=== PATIENT | male | born 1970 | race Caucasian/White ===

== ENCOUNTER 2019-12-10 15:36 | Emergency (ER) | payer OTHER ==
[~2019-12-10 15:36] MED LIST: FLAGYL500 MG PO; FLEXERIL5 MG PO; HYDROCODONE BIT1 T11 PO; IMODIUM A-D2 M2 PO; LISINOPRIL20 MG PO; LISINOPRIL5 MG PO; METOPROLOL SUCC25 M2 PO; MOTRIN800 MG PO; PANTOPRAZOLE SO20 MG PO; VITAMIN D-32000 UNIT PO; ZOFRAN4 MG PO
== END 2019-12-10 19:30 | disposition home or self-care (01) ==
LOC: ED 15:36
DX: S61.215A Laceration without foreign body of left ring finger without damage to nail, initial encounter (principal); K21.9 Gastro-esophageal reflux disease without esophagitis; I10 Essential (primary) hypertension; Z79.899 Other long term (current) drug therapy; X58.XXXA Exposure to other specified factors, initial encounter; Y93.89 Activity, other specified; Y92.89 Other specified places as the place of occurrence of the external cause; Y99.8 Other external cause status

== ENCOUNTER → 2020-10-30 | Outpatient (CLI) | payer OTHER ==
[2020-10-30 07:42] LABS: BUN 9 mg/dl (7-24); CHLORIDE 109 mmol/L (98-107); CHOLESTEROL 179 mg/dL (<200); CREATININE 0.82 mg/dL (0.70-1.30); LDL CHOLESTEROL 104 mg/dL (9-159); POTASSIUM 3.9 mmol/L (3.5-5.1); SODIUM 143 mmol/L (136-145); TRIGLYCERIDES 187 mg/dl (<150)
== END | disposition home or self-care (01) ==
LOC: LAB 07:05
PROVIDERS: ATTEND Family Medicine
DX: I10 Essential (primary) hypertension (principal)

== ENCOUNTER → 2021-03-02 | Outpatient (CLI) | payer OTHER | END | disposition home or self-care (01) | LOC: COVID19 15:15 | PROVIDERS: ATTEND Internal Medicine | DX: Z20.822 Contact with and (suspected) exposure to COVID-19 (principal) ==

== ENCOUNTER 2022-08-18 18:27 | Emergency (ER) | payer OTHER ==
[~2022-08-18] VITALS: Ht 177.8 cm; Wt 81.6 kg
[2022-08-18] MEDS ORDERED: NAPROSYN500 MG PO (20:07)
== END 2022-08-18 20:30 | disposition home or self-care (01) ==
LOC: ED 18:27
DX: M25.512 Pain in left shoulder (principal); I10 Essential (primary) hypertension; Z90.89 Acquired absence of other organs; F12.90 Cannabis use, unspecified, uncomplicated

== ENCOUNTER 2023-01-04 04:30 | Emergency (ER) | payer OTHER ==
[~2023-01-04] VITALS: Ht 177.8 cm; Wt 81.6 kg
[~2023-01-04 04:30] MED LIST changes: +NAPROSYN500 MG PO
[2023-01-04] MEDS ORDERED: PREDNISONE50 MG PO (04:47)
== END 2023-01-04 05:11 | disposition home or self-care (01) ==
LOC: ED 04:30
DX: M25.511 Pain in right shoulder (principal); I10 Essential (primary) hypertension; Z90.89 Acquired absence of other organs; F12.90 Cannabis use, unspecified, uncomplicated; F17.290 Nicotine dependence, other tobacco product, uncomplicated

== ENCOUNTER → 2024-06-04 | Outpatient (CLI) | payer OTHER ==
[~2024-06-04] MED LIST changes: +PREDNISONE50 MG PO
== END | disposition home or self-care (01) ==
LOC: LAB 11:32
PROVIDERS: ATTEND Nurse Practitioner Family
DX: R19.7 Diarrhea, unspecified (principal)